=== PATIENT | female | born 1985 | race Caucasian/White ===

== ENCOUNTER → 2017-01-25 | Outpatient (CLI) | payer OTHER ==
[~2017-01-25] MED LIST: AMOXICILLIN875 MG PO; AUGMENTIN875 M1 PO; AUGMENTIN875 MG DOB; FLAGYL PO; FLEXERIL10 M1; FLEXERIL10 MG PO; HYDROCODON-ACE1 EAC7 PO; LEVAQUIN PO; NO MEDICATIONS; NORCO 5/325 TAB1 TAB PO; PERCOCET5/325 PO; PHENERGAN VC W120 M1 PO; PHENERGAN25 M1 DOB; VOLTAREN50 MG PO
[2017-01-25 16:32] LABS: BUN/CREATININE RATIO 18.33; CALCIUM SERUM 8.8 mg/dL (8.4-10.2); CREATININE SERUM 0.6 mg/dL (0.6-1.4); GLOM FILT RATE Estimated 123.2 mL/min (>60); POTASSIUM 3.9 mmol/L (3.5-5.1)
== END | disposition home or self-care (01) ==
LOC: SLAB 15:50
PROVIDERS: Emergency Medicine
DX: N17.9 Acute kidney failure, unspecified (principal)
CPT/HCPCS: 36415; 80048